=== PATIENT | female | born 2000 | race Caucasian/White ===

== ENCOUNTER 2021-01-08 08:41 | Emergency (ER) | payer SELFPAY ==
[~2021-01-08] VITALS: Ht 167.6 cm; Wt 107.0 kg
[2021-01-08 08:52] VITALS: BP 142/76
[2021-01-08] MEDS ORDERED: CEPH500T PO (09:01)
[2021-01-08] MEDS ORDERED: PERM60CR12 TP (09:01)
--- NOTE | 2021-01-08 09:01 | PHYS DOC ---
Past History Additional Past Medical Histor: TBI Past Surgical History: Other Additional Past Surgical Histo: Cyst removed from fallopian tube General Adult EDM: Chief Complaint: UPPER EXTREMITY PAIN HPI: HPI: 20-year-old female presents with left arm lesion. The patient has a 3 cm round, erythematous area on the posterior of her left arm that is painful. She states that it has shown up last 2 days and is uncomfortable to the touch. She does not know what happened. She also has many other erythematous papules extremities consistent with insect bites or similar. She has wondered if the place she is staying has bedbugs. She has no other complaints this time. Review of Systems: Review of Systems: Constitutional: Denies fever or chills Eyes: Denies change in visual acuity HENT: Denies nasal congestion or sore throat Respiratory: Denies cough or shortness of breath Cardiovascular: Denies chest pain or edema GI: Denies abdominal pain, nausea, vomiting, bloody stools or diarrhea : Denies dysuria Musculoskeletal: Denies back pain or joint pain Integument: Lesion left arm, rash bilateral arms Neurologic: Denies headache, focal weakness or sensory changes Endocrine: Denies polyuria or polydipsia Lymphatic: Denies swollen glands Psychiatric: Denies depression or anxiety Allergies: Allergies: Allergies Coded Allergies Type Severity Reaction Last Updated Verified Penicillins Allergy Unknown 01/08/21 Yes Physical Exam: PE: Constitutional: Well developed, well nourished, no acute distress, non-toxic appearance. [] HENT: Normocephalic, atraumatic, bilateral external ears normal, oropharynx moist, no oral exudates, nose normal. [] Eyes: PERRLA, EOMI, conjunctiva normal, no discharge. [] Neck: Normal range of motion, no tenderness, supple, no stridor. [] Cardiovascular:Heart rate regular rhythm, no murmur [] Lungs & Thorax: Bilateral breath sounds clear to auscultation [] Abdomen: Bowel sounds normal, soft, no tenderness, no masses, no pulsatile masses. [] Skin: 3 cm erythematous warm area of the posterior left arm without central fluctuance. Many papules and excoriations of the bilateral upper extremities including hands. [] Back: No tenderness, no CVA tenderness. [] Extremities: No tenderness, no cyanosis, no clubbing, ROM intact, no edema. [] Neurologic: Alert and oriented X 3, normal motor function, normal sensory function, no focal deficits noted. [] Psychologic: Affect normal, judgement normal, mood normal. [] EKG: EKG: [] Radiology/Procedures: Radiology/Procedures: [] Heart Score: C/O Chest Pain: N/A Risk Factors: Risk Factors: DM, Current or recent (<one month) smoker, HTN, HLP, family history of CAD, obesity. Risk Scores: Score 0 - 3: 2.5% MACE over next 6 weeks - Discharge Home Score 4 - 6: 20.3% MACE over next 6 weeks - Admit for Clinical Observation Score 7 - 10: 72.7% MACE over next 6 weeks - Early Invasive Strategies Course & Med Decision Making: Course & Med Decision Making Pertinent Labs and Imaging studies reviewed. (See chart for details) The large lesion on the patient's arm appears to be cellulitis. There is no fluctuant area to drain at this time. I will place her on Keflex. Patient also has the presentation of scabies infestation. I will discharge her with prescription for permethrin. She is stable for discharge at this time. [] Dragon Disclaimer: Dragon Disclaimer: This electronic medical record was generated, in whole or in part, using a voice recognition dictation system. Departure Departure: Impression: Primary Impression: Cellulitis of arm, left Additional Impression: Scabies Disposition: HOME / SELF CARE / HOMELESS Condition: STABLE Referrals: PCP,NO (PCP) Patient Instructions: Cellulitis, [id number], Scabies Scripts Permethrin (PERMETHRIN) 60 Gm Cream..g. 1 HA TP ONCE for scabies, #60 GM 1 Refill Prov: NATASHA ROBLES DO 01/08/21 Cephalexin (CEPHALEXIN) 500 Mg Tablet 1 TAB PO TID for cellulitis for 7 Days, #21 TAB Prov: NATASHA ROBLES DO 01/08/21 NATASHA ROBLES DO Jan 08, 2021 09:01
== END 2021-01-08 09:13 | disposition home or self-care (01) ==
LOC: ER 08:41
DX: L03.114 Cellulitis of left upper limb (principal); B86 Scabies; Z88.0 Allergy status to penicillin
CPT/HCPCS: 99283

== ENCOUNTER 2021-06-01 06:46 | Emergency (ER) | payer OTHER ==
[~2021-06-01] VITALS: Ht 167.6 cm; Wt 112.0 kg
[~2021-06-01 06:46] MED LIST: CEPH500T PO; PERM60CR12 TP
[2021-06-01 07:00] VITALS: BP 143/86
--- NOTE | 2021-06-01 07:26 | PHYS DOC ---
Past History Additional Past Medical Histor: TBI Past Surgical History: Other Additional Past Surgical Histo: Cyst removed from fallopian tube Alcohol Use: Occasionally General Adult EDM: Chief Complaint: ABDOMINAL PAIN HPI: HPI: Patient is a 20-year-old female coming in for lower abdominal pain that started this morning. Patient woke up in her lower abdominal pain. States that he got little better after using the restroom. Patient also coughed up a little bit of blood when she uses the restroom. Patient is the pain is better now but still has right lower quadrant pain. Denies any hematuria or dysuria. Denies any vaginal bleeding or discharge. Patient is currently try to get . Patient states she has a history of a "fallopian cyst". But on description it sounds like it could have been an ectopic on the left. Patient she is 15 I have been and is not sure what her actual diagnosis was. Patient states she has had diarrhea for the past couple of days, denies any vomiting or fevers Review of Systems: Review of Systems: All other systems within normal limits except for as noted in the HPI Allergies: Allergies: Allergies Coded Allergies Type Severity Reaction Last Updated Verified Penicillins Allergy Unknown 01/08/21 Yes Physical Exam: PE: Constitutional: Well developed, well nourished, no acute distress, non-toxic appearance. [] HENT: Normocephalic, atraumatic, bilateral external ears normal, nose normal. [] Eyes: PERRLA, conjunctiva normal, no discharge. [] Neck: No rigidity, supple, no stridor. [] Cardiovascular: Regular rate and rhythm, brisk cap refill [] Lungs & Thorax: Non labored symmetric respirations, no tachypnea or respiratory distress [] Abdomen: Soft, nondistended, right lower quadrant tenderness and guarding. Skin: Warm, dry, no erythema, no rash. [] Back: Unremarkable Extremities: No deformities, range of motion grossly intact, no lower extremity edema [] Neurologic: Alert and oriented X 3, no focal deficits noted. [] Psychologic: Affect normal, judgement normal, mood normal. [] Current Patient Data: Vital Signs: Vital Signs Date Time Temp Pulse Resp B/P (MAP) Pulse Ox O2 Delivery O2 Flow Rate FiO2 06/01/21 07:00 98.3 66 16 143/86 (105) 98 EKG: EKG: [] Radiology/Procedures: Radiology/Procedures: [][address] [address] IMAGING REPORT Signed PATIENT: SUNIL SOSA ACCOUNT: [id number] : 2000 LOCATION: ER AGE: 20 SEX: F EXAM STATUS: REG ER ORD. PHYSICIAN: ANGELINE HERNANDEZ MD REASON: RLQ pain PROCEDURE: US PELVIS W/TV EXAM: Pelvic sonogram. HISTORY: Right lower quadrant pain. TECHNIQUE: Transabdominal and transvaginal sonographic imaging of the pelvis was performed. COMPARISON: None. FINDINGS: The uterus is retroflexed and measures 7.8 x 5.8 x 4.5 cm. The endometrial stripe measures 1.45 cm in thickness. The ovaries are normal in size and demonstrate normal blood flow. There is a 2.9 cm simple appearing dominant right ovarian follicular cyst. There is adjacent cyst with internal septations measuring 2.0 cm. There is no pelvic free fluid. IMPRESSION: 1. 2.9 cm simple physiologic dominant right ovarian follicular cyst and 2.0 cm complicated right ovarian cyst with internal septations. 2. Prominent endometrial stripe, likely due to the phase the patient's menstrual cycle. Electronically signed by: Garima Goode MD (06/01/2021 10:51 AM) [id number] DICTATED AND SIGNED BY: GARIMA GOODE MD DATE: 06/01/21 1050 CC: ANGELINE HERNANDEZ MD; PCP,NO ~MTH0 [address] [address] IMAGING REPORT Signed PATIENT: SUNIL SOSA ACCOUNT: [id number] : 2000 LOCATION: ER AGE: 20 SEX: F EXAM STATUS: REG ER ORD. PHYSICIAN: ANGELINE HERNANDEZ MD REASON: RLQ pain PROCEDURE: CT ABD PELV W/ IV CONTRST ONLY INDICATION: Reason: RLQ pain / Spl. Instructions: / History: COMPARISON: None. TECHNIQUE: Axial CT images were obtained through the abdomen and pelvis with intravenous contrast. One or more of the following individualized dose reduction techniques were utilized for this examination: 1. Automated exposure control; 2. Adjustment of the mA and/or kV according to patient size; 3. Use of iterative reconstruction technique. FINDINGS: Vascular: No abdominal aortic aneurysm. Hepatobiliary: No intrahepatic biliary duct dilation. Pancreas: No peripancreatic edema. Spleen: Spleen unremarkable. Renal/Bladder: No hydronephrosis. Gastrointestinal: Small fat-containing umbilical hernia. Mild colonic diverticulosis. Appendix measures up to 7-8 mm without definite adjacent inflammatory changes. 20 mm low-density lesion at the right adnexa could be from small cyst or diane nant follicle. IMPRESSION: * The appendix is mildly dilated with a portion of this measurement secondary to intraluminal content. There is no definite adjacent inflammatory changes therefore this does not fulfill all of the CT criteria for appendicitis. * No evidence of bowel obstruction. Electronically signed by: Regan Hancock MD (06/01/2021 8:32 AM) [id number] DICTATED AND SIGNED BY: REGAN HANCOCK MD DATE: 06/01/21823 CC: ANGELINE HERNANDEZ MD; PCP,NO ~MTH0 0 Heart Score: C/O Chest Pain: No Risk Factors: Risk Factors: DM, Current or recent (<one month) smoker, HTN, HLP, family history of CAD, obesity. Risk Scores: Score 0 - 3: 2.5% MACE over next 6 weeks - Discharge Home Score 4 - 6: 20.3% MACE over next 6 weeks - Admit for Clinical Observation Score 7 - 10: 72.7% MACE over next 6 weeks - Early Invasive Strategies Course & Med Decision Making: Course & Med Decision Making Pertinent Labs and Imaging studies reviewed. (See chart for details) [] RUN DATE: 06/01/21 [facility] *LIVE* PAGE 1 RUN TIME: 1026 Specimen Inquiry ---- -------- PATIENT: SUNIL SOSA ACCT: [id number] LOC: ER U: [id number] AGE/SX: 20/ ROOM: RE06/01/[address]: ANGELINE HERNANDEZ MD : 2000 BED: DIS: STATUS: REG ER TLOC: SPEC #: [id number] SEBASTIAN: 06/01/21 STATUS: COMP REQ #: [id number] RECD: 06/01/[address]: ANGELINE HERNANDEZ MD SOURCE: VAGINAL ENTR: 06/01/[address]: LALA JUNEESC: ORDERED: WET PREP COMMENTS: Has specimen been collected/obtained? Y Procedure Result WET PREP Final YEAST NONE SEEN TRICHOMONAS NONE SEEN CLUE CELLS NONE SEEN WBCS FEW RBCS FEW SQUAMOUS EPS MANY Consult placed to general surgery, discussed with Dr. Kelley since patient has slightly dilated appendix with right lower quadrant pain. There is no inflammatory changes no white count. Patient also has 2 ovarian cysts right ovary. Discussed with patient and that the cyst could be the cause of the pain. Discussed strict return precautions for appendicitis. Azul Disclaimer: Azul Disclaimer: This electronic medical record was generated, in whole or in part, using a voice recognition dictation system. Departure Departure: Impression: Primary Impression: Ovarian cyst, right Disposition: HOME / SELF CARE / HOMELESS Condition: STABLE Referrals: JOSH AYUOB MD Patient Instructions: Abdominal Pain, Possible Early Appendicitis, Ovarian Cyst Scripts Ibuprofen (IBUPROFEN) 800 Mg Tablet 1 TAB PO TID PRN for PAIN, #30 TAB Prov: ANGELINE HERNANDEZ MD 06/01/21 ANGELINE HERNANDEZ MD Jun 01, 2021 07:26
[2021-06-01] MEDS ORDERED: IV NORMAL SALINE 1,000ML 1,000 ML IV ONE (07:45)
[2021-06-01] MEDS ORDERED: IOHEXOL 300 MG/ML 75 ML VIAL. IV ONE (07:45)
[2021-06-01] MEDS ORDERED: ONDANSETRON PF 4 MG/2 ML VIAL. IVP ONE (07:45)
[2021-06-01 07:55] LABS: BASO # 0.1 x10^3/uL (0.0-0.2); BASO % 1 % (0-3); EOS # 0.2 x10^3/uL (0.0-0.7); EOS % 4 % (0-3); HEMATOCRIT 39.3 % (36.0-47.0); HEMOGLOBIN 13.1 g/dL (12.0-15.5); LYMPH # 2.9 x10^3/uL (1.0-4.8); LYMPH % 40 % (24-48); MEAN CORPUSCULAR HEMOGLOBIN 30 pg (25-35); MEAN CORPUSCULAR HGB CONC 33 g/dL (31-37); MEAN CORPUSCULAR VOLUME 90 fL (79-100); MONO # 0.4 x10^3/uL (0.0-1.1); MONO % 5 % (0-9); NEUT # 3.6 x10^3uL (1.8-7.7); NEUT % 50 % (31-73); PLATELET COUNT 248 x10^3/uL (140-400); RED BLOOD COUNT 4.35 x10^6/uL (3.50-5.40); RED CELL DISTRIBUTION WIDTH 13.2 % (11.5-14.5); WHITE BLOOD COUNT 7.2 x10^3/uL (4.0-11.0)
[2021-06-01 08:02] LABS: CALCIUM 8.9 mg/dL (8.5-10.1); CREATININE 0.7 mg/dL (0.6-1.0); GFR 106.7; POTASSIUM 4.1 mmol/L (3.5-5.1)
[2021-06-01 08:07] LABS: ALBUMIN 3.5 g/dL (3.4-5.0); TOTAL BILIRUBIN 0.2 mg/dL (0.2-1.0)
[2021-06-01 08:09] LABS: BACTERIA,URINE FEW /HPF (0-FEW); CLARITY,URINE HAZY; COLOR,URINE YELLOW; GLUCOSE,URINE NEG (NEG); NITRITE,URINE NEG (NEG); SQUAMOUS EPITHELIAL CELL,UR MANY /LPF; UROBILINOGEN,URINE 0.2 mg/dL (0.2 mg/dL)
--- NOTE | 2021-06-01 08:35 | RAD ---
INDICATION: Reason: RLQ pain / Spl. Instructions: / History: COMPARISON: None. TECHNIQUE: Axial CT images were obtained through the abdomen and pelvis with intravenous contrast. One or more of the following individualized dose reduction techniques were utilized for this examinat ion: 1. Automated exposure control; 2. Adjustment of the mA and/or kV according to patient size; 3 . Use of iterative reconstruction technique. FINDINGS: Vascular: No abdominal aortic aneurysm. Hepatobiliary: No intrahepatic biliary duct dilation. Pancreas: No peripancreatic edema. Spleen: Spleen unremarkable. Renal/Bladder: No hydronephrosis. Gastrointestinal: Small fat-containing umbilical hernia. Mild colonic diverticulosis. Appendix measur es up to 7-8 mm without definite adjacent inflammatory changes. 20 mm low-density lesion at the right adnexa could be from small cyst or dominant follicle. IMPRESSION: * The appendix is mildly dilated with a portion of this measurement secondary to intraluminal alex nt. There is no definite adjacent inflammatory changes therefore this does not fulfill all of the CT criteria for appendicitis. * No evidence of bowel obstruction. Electronically signed by: Basil De Los Santos MD (06/01/2021 8:32 AM) [id number]
--- NOTE | 2021-06-01 10:54 | RAD ---
EXAM: Pelvic sonogram. HISTORY: Right lower quadrant pain. TECHNIQUE: Transabdominal and transvaginal sonographic imaging of the pelvis was performed. COMPARISON: None. FINDINGS: The uterus is retroflexed and measures 7.8 x 5.8 x 4.5 cm. The endometrial stripe measures 1.45 cm in thickness. The ovaries are normal in size and demonstrate normal blood flow. There is a 2. 9 cm simple appearing dominant right ovarian follicular cyst. There is adjacent cyst with internal se ptations measuring 2.0 cm. There is no pelvic free fluid. IMPRESSION: 1. 2.9 cm simple physiologic dominant right ovarian follicular cyst and 2.0 cm complicated right ovar ermias cyst with internal septations. 2. Prominent endometrial stripe, likely due to the phase the patient's menstrual cycle. Electronically signed by: Garima Turner MD (06/01/2021 10:51 AM) [id number]
[2021-06-01] MEDS ORDERED: IBUP800T19 PO (11:09)
[2021-06-02 19:22] LABS: CHLAMYDIA PROBE Negative (Negative)
== END 2021-06-01 11:30 | disposition home or self-care (01) ==
LOC: ER 06:46
DX: N83.201 Unspecified ovarian cyst, right side (principal); Z87.820 Personal history of traumatic brain injury; Z88.0 Allergy status to penicillin
CPT/HCPCS: 36415; 74177; 76830; 76856; 80053; 81001; 81025; 83690; 85025; 87491; 87591; 96361; 96374; 99285; J2405; J7030; Q0111; Q9967